=== PATIENT | male | born 1995 | race Native Hawaiian/Other Pacific Islander ===

== ENCOUNTER 2024-05-21 13:10 | Outpatient (REF) | payer OTHER, SELFPAY ==
[2024-05-21 17:12] LABS: Estimated Average Glucose 103 mg/dL; Hemoglobin A1C 122.4544 umol/L; Hemoglobin A1c % 5.2 % (<6.0); Total Hemoglobin (HGBA1C) 3675.7274 umol/L
[2024-05-21 17:29] LABS: Alanine Aminotransferase 18 U/L (0-40); Alkaline Phosphatase 61 U/L (39-117); Anion Gap 13 (12-20); Aspartate Amino Transferase 25 U/L (5-37); Bilirubin Direct 0.2 mg/dL (0.0-0.5); Bilirubin Total 0.6 mg/dL (0.0-1.0); Blood Urea Nitrogen 14 mg/dL (9-16); Calcium 9.4 mg/dL (8.4-10.2); Carbon Dioxide 25 mmol/L (22-29); Chloride 106 mmol/L (96-108); Cholesterol 165 mg/dL (<200); Estimated Glomerular Filt Rate > 60; Glucose Random 91 mg/dL (60-115); HDL Cholesterol 42 mg/dL (>40); LDL Cholesterol Calculated 114 mg/dL (<100); Potassium 4.1 mmol/L (3.3-5.1); Sodium 140 mmol/L (135-145); Total Protein 7.2 g/dL (6.5-8.0); Triglycerides 49 mg/dL (<150)
[2024-05-21 17:30] LABS: TSH reflex Free T4 2.79 uIU/mL (0.32-4.0); Vitamin D 25-OH Total 30.3 ng/mL (>30)
[2024-05-22 02:42] LABS: CT PCR NOT DETECTED (Not Detect.); NG PCR NOT DETECTED (Not Detect.)
[2024-05-22 09:00] LABS: HIV AB/AG Nonreactive (Nonreactive); HIV Num 1 0.08 S/CO (0.00-0.99)
[2024-05-23 08:51] LABS: ~HepC Num1 0.29 S/CO (0.00-0.79); ~Hepatitis C Antibody Nonreactive (Nonreactive)
== END 2024-05-21 13:11 | disposition home or self-care (01) ==
LOC: HO.HHCL 13:10
PROVIDERS: Visit Provider Family Medicine
DX: E66.813 Obesity, class 3 (principal); E66.01 Morbid (severe) obesity due to excess calories; Z68.41 Body mass index [BMI] 40.0-44.9, adult; R45.89 Other symptoms and signs involving emotional state; Z11.3 Encounter for screening for infections with a predominantly sexual mode of transmission; Z13.1 Encounter for screening for diabetes mellitus
CPT/HCPCS: 36415; 80048; 80061; 80076; 82306; 83036; 84443; 86803; 87389; 87491; 87591